=== PATIENT | male | born 1950 ===

== ENCOUNTER 2022-12-04 05:10 | Day surgery (SDC) | payer OTHER ==
[~2022-12-04] VITALS: Ht 172.7 cm; Wt 93.4 kg
[~2022-12-04 05:10] MED LIST: COZAAR100 MG PO; DOXAZOSIN MESYLA4 MG PO; METOP PO; SIMVAST PO; SYNJARDY XR 121 EACH PO; ZETIA10 MG PO
== END 2022-12-04 12:05 | disposition home or self-care (01) ==
LOC: CIR.AMB 05:10
PROVIDERS: ATTEND Urology
DX: N47.1 Phimosis (principal); N47.7 Other inflammatory diseases of prepuce; Z20.822 Contact with and (suspected) exposure to COVID-19; E11.9 Type 2 diabetes mellitus without complications; I10 Essential (primary) hypertension; E78.5 Hyperlipidemia, unspecified